=== PATIENT | female | born 1955 | race Caucasian/White ===

== ENCOUNTER → 2016-12-01 | Outpatient (CLI) | payer OTHER ==
[~2016-12-01] MED LIST: ALBUTEROL; FLUNPOW; LEVO10VL IV; MAGN250T2 PO; OMEP40CA2 PO; VITA200016 PO; ZOLP5TAB PO
[2016-12-01 15:26] LABS: FREE T4 1.22 NG/DL (0.76-1.46)
--- NOTE | 2016-12-01 20:16 | REP ---
LUMBAR SPINE, COMPLETE: 12/01/2016. Clinical history: Back pain. I have only a report of an x-ray study 12/13/2006 at [facility]. Images no longer available. Five views are provided. The normal lordosis is slightly reduced. The disc space heights and vertebral body heights are intact. There are marginal osteophytes, greatest at L3-4. There is facet arthritis at L4-5 and greater at L5-S1. No spondylolysis or spondylolisthesis noted. AP view shows slight dextrorotatory curve lumbar spine centered at L2-3. Right upper quadrant clips from cholecystectomy. Impression: 1. Degenerative disc and facet arthritic changes as described. No compression deformity, spondylolysis or other acute finding. Signed by Javon Fisher MD 12/01/2016 08:22 P
--- NOTE | 2016-12-01 20:18 | REP ---
RIGHT HIP SERIES, COMPLETE: 12/01/2016. Clinical history: Hip pain. Comparison 11/04/2008. Small rim osteophytes femoral head and acetabular roof. I do not see any progressive joint space narrowing since the study in 2007. Femoral head, neck, trochanters and proximal shaft intact. That portion of pubic rami, acetabulum, iliac bone and the SI joint are unremarkable. Impression: 1. Some right hip osteoarthritic change without progression since 2007. Signed by Javon Fisher MD 12/01/2016 08:22 P
== END ==
LOC: M LAB 13:54
PROVIDERS: ATTEND Physician Assistant Medical
DX: M16.11 Unilateral primary osteoarthritis, right hip (principal); M51.36 Other intervertebral disc degeneration, lumbar region; E03.9 Hypothyroidism, unspecified; M25.551 Pain in right hip; M54.5 Low back pain

== ENCOUNTER → 2016-12-01 | Outpatient (CLI) | payer OTHER ==
[2016-12-01 14:48] LABS: MEAN CORPUSCULAR HEMOGLOBIN 31.2 pg (27.0-33.0); MEAN CORPUSCULAR HGB CONC 33.6 g/dl (32.0-36.5); RED CELL DISTRIBUTION WIDTH 11.9 % (11.5-14.5); WHITE BLOOD COUNT 3.8 K/mm3 (4.0-10.0)
[2016-12-01 14:59] LABS: BASOPHILS 3 % (0-4); EOSINOPHILS 3 % (0-5)
[2016-12-01 15:19] LABS: ALBUMIN 3.7 GM/DL (3.2-5.2); ALKALINE PHOSPHATASE 69 U/L (45-117); ALT/SGPT 29 U/L (12-78); ANION GAP 7 MEQ/L (8-16); AST/SGOT 17 U/L (15-37); BILIRUBIN,TOTAL 0.3 MG/DL (0.2-1.0); BLOOD UREA NITROGEN 15 MG/DL (7-18); CALCIUM LEVEL 8.9 MG/DL (8.8-10.2); CARBON DIOXIDE LEVEL 30 MEQ/L (21-32); CHLORIDE LEVEL 106 MEQ/L (98-107); COMPLEMENT C3 147 MG/DL (90-180); COMPLEMENT C4 12.8 MG/DL (10-40); CREATININE FOR GFR 0.83 MG/DL (0.55-1.02); GLOMERULAR FILTRATION RATE > 60.0 (>45); GLUCOSE, FASTING 94 MG/DL (80-110); POTASSIUM SERUM 4.4 MEQ/L (3.5-5.1); SODIUM LEVEL 143 MEQ/L (136-145); TOTAL PROTEIN 7.8 GM/DL (6.4-8.2)
== END ==
LOC: M LAB 14:02
PROVIDERS: ATTEND Physician Assistant Medical
DX: M32.10 Systemic lupus erythematosus, organ or system involvement unspecified (principal)

== ENCOUNTER → 2017-05-01 | Outpatient (CLI) | payer OTHER ==
[2017-05-01 17:42] LABS: ALBUMIN 3.8 GM/DL (3.2-5.2); ALBUMIN/GLOBULIN RATIO 0.95 (1.00-1.93); ALKALINE PHOSPHATASE 77 U/L (45-117); ALT/SGPT 23 U/L (12-78); ANION GAP 6 MEQ/L (8-16); AST/SGOT 21 U/L (15-37); BILIRUBIN,TOTAL 0.3 MG/DL (0.2-1.0); BLOOD UREA NITROGEN 13 MG/DL (7-18); CALCIUM LEVEL 8.6 MG/DL (8.8-10.2); CARBON DIOXIDE LEVEL 28 MEQ/L (21-32); CHLORIDE LEVEL 106 MEQ/L (98-107); CHOLESTEROL LEVEL 221 MG/DL (<200); CREATININE FOR GFR 0.71 MG/DL (0.55-1.02); GLOMERULAR FILTRATION RATE > 60.0 (>45); GLUCOSE, FASTING 84 MG/DL (80-110); POTASSIUM SERUM 4.2 MEQ/L (3.5-5.1); SODIUM LEVEL 140 MEQ/L (136-145); TOTAL PROTEIN 7.8 GM/DL (6.4-8.2); TRIGLYCERIDES LEVEL 111 MG/DL (<150)
== END ==
LOC: M LAB 16:19
PROVIDERS: ATTEND Physician Assistant Medical
DX: E03.9 Hypothyroidism, unspecified (principal); E78.5 Hyperlipidemia, unspecified

== ENCOUNTER → 2017-12-04 | Outpatient (CLI) | payer BC, OTHER ==
[2017-12-04 16:42] LABS: BASO # 0.1 10^3/uL (0.0-0.2); BASO % 1.2 % (0.0-1.0); EOS # 0.1 10^3/uL (0.0-0.50); EOS % 1.9 % (0.0-3.0); HEMATOCRIT 40.7 % (36.0-47.0); HEMOGLOBIN 13.5 g/dl (12.0-16.0); IMMATURE GRANULOCYTE % 0.2 % (0-0); LYMPH # 0.7 10^3/uL (1.5-4.5); LYMPH % 13.8 % (24.0-44.0); MEAN CORPUSCULAR HEMOGLOBIN 31.4 pg (27.0-33.0); MEAN CORPUSCULAR HGB CONC 33.2 g/dl (32.0-36.5); MEAN CORPUSCULAR VOLUME 94.7 fl (80.0-96.0); MONO # 0.3 10^3/uL (0.0-0.8); NEUTROPHILS % 76.9 % (36.0-66.0); PLATELET COUNT, AUTOMATED 247 10^3/uL (150-450); RED CELL DISTRIBUTION WIDTH 12.7 % (11.5-14.5); WHITE BLOOD COUNT 5.1 10^3/uL (4.0-10.0)
[2017-12-04 17:06] LABS: ERYTHROCYTE SEDIMENTATION RATE 47 mm/hr (0-30)
[2017-12-04 17:30] LABS: FOLATE 4.6 NG/ML
[2017-12-04 18:27] LABS: VITAMIN B12 LEVEL 285 PG/ML
[2017-12-04 18:32] LABS: ALBUMIN 3.9 GM/DL (3.2-5.2); ALBUMIN/GLOBULIN RATIO 0.91 (1.00-1.93); ALKALINE PHOSPHATASE 83 U/L (45-117); ALT/SGPT 18 U/L (12-78); ANION GAP 7 MEQ/L (8-16); AST/SGOT 16 U/L (7-37); BILIRUBIN,TOTAL 0.3 MG/DL (0.2-1.0); BLOOD UREA NITROGEN 18 MG/DL (7-18); CALCIUM LEVEL 9.1 MG/DL (8.8-10.2); CARBON DIOXIDE LEVEL 28 MEQ/L (21-32); CHLORIDE LEVEL 104 MEQ/L (98-107); CREATININE FOR GFR 0.83 MG/DL (0.55-1.02); GLOMERULAR FILTRATION RATE > 60.0 (>45); GLUCOSE, FASTING 84 MG/DL (70-100); POTASSIUM SERUM 4.4 MEQ/L (3.5-5.1); RHEUMATOID FACTOR QUANT < 10.0 IU/ML (0-15.0); SODIUM LEVEL 139 MEQ/L (136-145); TOTAL PROTEIN 8.2 GM/DL (6.4-8.2)
[2017-12-04 18:50] LABS: ESTIMATED AVERAGE GLUCOSE 108 MG/DL (60-110); HEMOGLOBIN A1c 5.4 %
[2017-12-04 21:38] LABS: TOTAL 25(OH) VITAMIN D 8.4 NG/ML (30.0-100.0)
[2017-12-05 11:15] LABS: ALBUMIN % 51.5 % (55.8-66.1); ALPHA-1-GLOBULIN % 3.7 % (2.9-4.9)
[2017-12-05 11:16] LABS: ALBUMIN 4.22 GM/DL (3.29-5.55); ALPHA-2-GLOBULINS 0.87 GM/DL (0.42-0.99); ALPHA-2-GLOBULINS % 10.6 % (7.1-11.8); BETA-1-GLOBULINS 0.56 GM/DL (0.28-0.60); BETA-1-GLOBULINS % 6.8 % (4.7-7.2); BETA-2-GLOBULINS 0.58 GM/DL (0.19-0.55); BETA-2-GLOBULINS % 7.1 % (3.2-6.5); GAMMA GLOBULIN % 20.3 % (11.1-18.8); GAMMA GLOBULINS 1.66 GM/DL (0.65-1.58)
[2017-12-06 11:04] LABS: DRVV SCREEN 41.5 SEC
[2017-12-11 14:12] LABS: ANCA-ATYPICAL <1:20 titer (Neg:<1:20); ANTI DOUBLE STRAND-DNA AB 1 IU/mL (0-9); ANTINUCLEAR ANTIBODIES DIRECT Positive (Negative); CYTOPLASMIC NEUTROP AB ANCA-C <1:20 titer (Neg:<1:20); PERINUCLEAR AB ANCA-P <1:20 titer (Neg:<1:20); RNP ANTIBODIES 0.2 AI (0.0-0.9); SJOGREN'S ANTI SS-A >8.0 AI (0.0-0.9); SJOGREN'S ANTI SS-B 2.6 AI (0.0-0.9); SMITH ANTIBODIES 0.2 AI (0.0-0.9); VITAMIN B1 LEVEL WHOLE BLOOD 139.4 nmol/L (66.5-200.0); VITAMIN B6,PYRIDOXAL PHOSPHATE 8.7 ug/L (2.0-32.8); VITAMIN E LEVEL 19.2 mg/L (6.5-21.5)
== END ==
LOC: M LAB 14:27
DX: M79.606 Pain in leg, unspecified (principal)

== ENCOUNTER → 2018-02-05 | Outpatient (CLI) | payer BC, OTHER | LOC: M WUC 11:58 | DX: S30.0XXA Contusion of lower back and pelvis, initial encounter (principal); W18.30XA Fall on same level, unspecified, initial encounter; Y92.009 Unspecified place in unspecified non-institutional (private) residence as the place of occurrence of the external cause | CPT/HCPCS: 72110 ==

== ENCOUNTER → 2018-06-04 | Outpatient (CLI) | payer BC, OTHER ==
[2018-06-04 18:34] LABS: TOTAL 25(OH) VITAMIN D 38.2 NG/ML (30.0-100.0)
== END ==
LOC: M WUC 15:19
DX: E55.9 Vitamin D deficiency, unspecified (principal)
CPT/HCPCS: 82306

== ENCOUNTER → 2018-08-17 | Outpatient (CLI) | payer BC, OTHER ==
[2018-08-17 16:22] LABS: BASO # 0.1 10^3/uL (0.0-0.2); BASO % 1.3 % (0.0-1.0); EOS # 0.1 10^3/uL (0.0-0.50); EOS % 1.7 % (0.0-3.0); HEMATOCRIT 42.6 % (36.0-47.0); HEMOGLOBIN 13.9 g/dl (12.0-15.5); IMMATURE GRANULOCYTE % 0.4 % (0-3.0); LYMPH % 19.2 % (24.0-44.0); MEAN CORPUSCULAR HEMOGLOBIN 30.9 pg (27.0-33.0); MEAN CORPUSCULAR HGB CONC 32.6 g/dl (32.0-36.5); MEAN CORPUSCULAR VOLUME 94.7 fl (80.0-96.0); MONO # 0.4 10^3/uL (0.0-0.8); MONO % 7.3 % (0.0-5.0); NEUTROPHILS # 3.6 10^3/uL (1.8-7.7); NEUTROPHILS % 70.1 % (36.0-66.0); PLATELET COUNT, AUTOMATED 257 10^3/uL (150-450); WHITE BLOOD COUNT 5.2 10^3/uL (4.0-10.0)
[2018-08-17 16:29] LABS: APPEARANCE, URINE CLEAR (CLEAR); BACTERIA, URINE AUTO NEGATIVE (NEGATIVE); BILIRUBIN, URINE AUTO NEGATIVE (NEGATIVE); BLOOD, URINE BLOOD NEGATIVE (NEGATIVE); COLOR, URINE STRAW (YELLOW); GLUCOSE, URINE (UA) AUTO NEGATIVE (NEGATIVE); KETONE, URINE AUTO NEGATIVE (NEGATIVE); LEUKOCYTE ESTERASE, URINE AUTO TRACE (NEGATIVE); NITRITE, URINE AUTO NEGATIVE (NEGATIVE); PROTEIN, URINE AUTO NEGATIVE (NEGATIVE); RBC, URINE AUTO 2 /HPF (0-3); SPECIFIC GRAVITY URINE AUTO 1.009 (1.002-1.035); SQUAMOUS EPITHELIAL CELL UR AU 1 /HPF (0-6); UROBILINOGEN, URINE AUTO 0.2 mg/dL (0.0-2.0); WBC, URINE AUTO 2 /HPF (0-3)
[2018-08-17 17:19] LABS: ALBUMIN 3.9 GM/DL (3.2-5.2); ALBUMIN/GLOBULIN RATIO 0.91 (1.00-1.93); ALKALINE PHOSPHATASE 70 U/L (45-117); ALT/SGPT 19 U/L (12-78); ANION GAP 5 MEQ/L (8-16); AST/SGOT 19 U/L (7-37); BILIRUBIN,TOTAL 0.3 MG/DL (0.2-1.0); BLOOD UREA NITROGEN 15 MG/DL (7-18); C REACTIVE PROTEIN QUANTITATIV < 0.30 MG/DL (0.00-0.30); CALCIUM LEVEL 9.3 MG/DL (8.8-10.2); CARBON DIOXIDE LEVEL 30 MEQ/L (21-32); CHLORIDE LEVEL 104 MEQ/L (98-107); COMPLEMENT C3 154 MG/DL (90-180); CPK CREATINE PHOSPHOKINASE 74 U/L (26-192); CREATININE FOR GFR 0.86 MG/DL (0.55-1.30); GLOMERULAR FILTRATION RATE > 60.0 (>45); GLUCOSE, FASTING 84 MG/DL (70-100); SODIUM LEVEL 139 MEQ/L (136-145); TOTAL PROTEIN 8.2 GM/DL (6.4-8.2)
[2018-08-21 00:06] LABS: ANTI DOUBLE STRAND-DNA AB 2 IU/mL (0-9)
[2018-08-21 14:04] LABS: ALBUMIN 4.25 GM/DL (3.29-5.55); ALBUMIN % 51.8 % (55.8-66.1); ALPHA-1-GLOBULIN % 3.4 % (2.9-4.9); ALPHA-1-GLOBULINS 0.28 GM/DL (0.17-0.41); ALPHA-2-GLOBULINS 0.87 GM/DL (0.42-0.99); ALPHA-2-GLOBULINS % 10.6 % (7.1-11.8); BETA-1-GLOBULINS 0.53 GM/DL (0.28-0.60); BETA-1-GLOBULINS % 6.5 % (4.7-7.2); BETA-2-GLOBULINS 0.56 GM/DL (0.19-0.55); BETA-2-GLOBULINS % 6.8 % (3.2-6.5); GAMMA GLOBULIN % 20.9 % (11.1-18.8); GAMMA GLOBULINS 1.71 GM/DL (0.65-1.58)
== END ==
LOC: M LAB 15:31
DX: M35.00 Sjogren syndrome, unspecified (principal)
CPT/HCPCS: 82550

== ENCOUNTER → 2019-02-12 | Outpatient (CLI) | payer BC, OTHER ==
[~2019-02-12] MED LIST changes: +LEVO100I IV; -LEVO10VL IV; -MAGN250T2 PO; +MAGN250T7 PO
[2019-02-12 16:14] LABS: BASO # 0.1 10^3/uL (0.0-0.2); BASO % 1.1 % (0.0-1.0); EOS # 0.1 10^3/uL (0.0-0.50); HEMATOCRIT 41.6 % (36.0-47.0); HEMOGLOBIN 13.6 g/dl (12.0-15.5); LYMPH # 0.7 10^3/uL (1.5-4.5); LYMPH % 16.3 % (24.0-44.0); MEAN CORPUSCULAR HEMOGLOBIN 31.6 pg (27.0-33.0); MEAN CORPUSCULAR HGB CONC 32.7 g/dl (32.0-36.5); MEAN CORPUSCULAR VOLUME 96.5 fl (80.0-96.0); MONO # 0.4 10^3/uL (0.0-0.8); NEUTROPHILS # 3.3 10^3/uL (1.8-7.7); NEUTROPHILS % 71.4 % (36.0-66.0); PLATELET COUNT, AUTOMATED 259 10^3/uL (150-450); RED BLOOD COUNT 4.31 10^6/uL (4.00-5.40); WHITE BLOOD COUNT 4.6 10^3/uL (4.0-10.0)
[2019-02-12 16:42] LABS: ALBUMIN 3.7 GM/DL (3.2-5.2); ALT/SGPT 22 U/L (12-78); BILIRUBIN,TOTAL 0.3 MG/DL (0.2-1.0); BLOOD UREA NITROGEN 14 MG/DL (7-18); CARBON DIOXIDE LEVEL 29 MEQ/L (21-32); CHLORIDE LEVEL 105 MEQ/L (98-107); COMPLEMENT C3 143 MG/DL (90-180); COMPLEMENT C4 15 MG/DL (10-40); CREATININE FOR GFR 0.77 MG/DL (0.55-1.30); GLOMERULAR FILTRATION RATE > 60.0 (>45); GLUCOSE, FASTING 88 MG/DL (70-100); POTASSIUM SERUM 4.3 MEQ/L (3.5-5.1); SODIUM LEVEL 138 MEQ/L (136-145); TOTAL PROTEIN 7.8 GM/DL (6.4-8.2)
[2019-02-14 13:18] LABS: ALBUMIN % 50.6 % (55.8-66.1)
[2019-02-14 13:19] LABS: ALBUMIN 3.95 GM/DL (3.29-5.55); ALPHA-1-GLOBULIN % 3.7 % (2.9-4.9); ALPHA-1-GLOBULINS 0.29 GM/DL (0.17-0.41); ALPHA-2-GLOBULINS % 11.5 % (7.1-11.8); BETA-1-GLOBULINS 0.51 GM/DL (0.28-0.60); BETA-1-GLOBULINS % 6.5 % (4.7-7.2); BETA-2-GLOBULINS 0.56 GM/DL (0.19-0.55); BETA-2-GLOBULINS % 7.2 % (3.2-6.5); GAMMA GLOBULIN % 20.5 % (11.1-18.8)
[2019-02-14 13:34] LABS: IT SERUM INTERPRETATION SEE COMME
[2019-02-14 14:14] LABS: ANTI DOUBLE STRAND-DNA AB 2 IU/mL (0-9)
== END ==
LOC: M LAB 15:35
PROVIDERS: ATTEND Physician Assistant Medical
DX: M32.10 Systemic lupus erythematosus, organ or system involvement unspecified (principal)

== ENCOUNTER → 2019-03-22 | Outpatient (CLI) | payer BC, OTHER ==
--- NOTE | 2019-03-22 19:39 | REP ---
Right hip: Two views. History: Hip pain. Comparison study: December 01, 2016. Findings: AP and frog-leg views of the right hip show smooth rounded femoral head and intact hip joint space. Minimal acetabular spurring is noted. Findings are unchanged. Impression: Mild osteoarthritic changes. No acute bony abnormality. Electronically Signed by Judd Reyes MD 03/22/2019 08:31 P
== END ==
LOC: M WUC 16:14
PROVIDERS: ATTEND Physician Assistant Medical
DX: M16.11 Unilateral primary osteoarthritis, right hip (principal)

== ENCOUNTER → 2019-06-12 | Outpatient (CLI) | payer BC, OTHER ==
[2019-06-12 16:22] LABS: BASO # 0.1 10^3/uL (0.0-0.2); BASO % 1.6 % (0.0-1.0); EOS # 0.1 10^3/uL (0.0-0.50); EOS % 1.8 % (0.0-3.0); HEMATOCRIT 42.7 % (36.0-47.0); HEMOGLOBIN 13.8 g/dl (12.0-15.5); LYMPH # 0.8 10^3/uL (1.5-4.5); LYMPH % 18.5 % (24.0-44.0); MEAN CORPUSCULAR HEMOGLOBIN 31.5 pg (27.0-33.0); MEAN CORPUSCULAR HGB CONC 32.3 g/dl (32.0-36.5); MEAN CORPUSCULAR VOLUME 97.5 fl (80.0-96.0); MONO # 0.4 10^3/uL (0.0-0.8); MONO % 8.8 % (0.0-5.0); NEUTROPHILS # 3.1 10^3/uL (1.8-7.7); NEUTROPHILS % 69.3 % (36.0-66.0); PLATELET COUNT, AUTOMATED 247 10^3/uL (150-450); RED BLOOD COUNT 4.38 10^6/uL (4.00-5.40); WHITE BLOOD COUNT 4.4 10^3/uL (4.0-10.0)
[2019-06-12 16:57] LABS: IMMUNOGLOBULIN E 29.9 IU/ML (<100); IMMUNOGLOBULIN G 1490 MG/DL (681-1648); IMMUNOGLOBULIN M 78.5 MG/DL (40-230)
[2019-06-12 17:10] LABS: RUBELLA IgG QUALITATIVE IMMUNE (IMMUNE)
[2019-06-18 14:07] LABS: ANTI TETANUS ANTIBODY 0.35 IU/mL (<0.10); STREP PNEUMO TYPE 1 <0.1 ug/mL (>1.3); STREP PNEUMO TYPE 12F <0.1 ug/mL (>1.3); STREP PNEUMO TYPE 14 <0.1 ug/mL (>1.3); STREP PNEUMO TYPE 19A 0.9 ug/mL (>1.3); STREP PNEUMO TYPE 19F 0.9 ug/mL (>1.3); STREP PNEUMO TYPE 23F <0.1 ug/mL (>1.3); STREP PNEUMO TYPE 3 0.4 ug/mL (>1.3); STREP PNEUMO TYPE 4 <0.1 ug/mL (>1.3); STREP PNEUMO TYPE 6B <0.1 ug/mL (>1.3); STREP PNEUMO TYPE 7F 0.3 ug/mL (>1.3); STREP PNEUMO TYPE 8 <0.1 ug/mL (>1.3); STREP PNEUMO TYPE 9N <0.1 ug/mL (>1.3); STREP PNEUMO TYPE 9V <0.1 ug/mL (>1.3)
== END ==
LOC: M LAB 15:42
PROVIDERS: ATTEND Allergy & Immunology Allergy
DX: D84.9 Immunodeficiency, unspecified (principal); J30.81 Allergic rhinitis due to animal (cat) (dog) hair and dander; J30.89 Other allergic rhinitis

== ENCOUNTER → 2019-08-08 | Outpatient (CLI) | payer BC, OTHER ==
--- NOTE | 2019-08-08 15:33 | REP ---
Bilateral lower extremity arterial duplex ultrasound: Right lower extremity: Brachial peak systole: 152 mmHg. Dorsalis pedis peak systole: 156 mmHg. KETTLE OPERATOR peak systole: 164 mmHg. HALINA: 1.1 Peak Systolic Phasicity Velocity BELL PERSON 205.1 triphasic Profunda 140.9 triphasic SFA prox 113.7 triphasic SFA mid 134.6 triphasic SFA dist 98.9 triphasic Pop 67.8 triphasic LUIS prox 22.6 triphasic Tib/P tr 68.4 triphasic KETTLE OPERATOR pr 63.7 triphasic KETTLE OPERATOR dst 55.9 triphasic LUIS dst 56.9 triphasic Left lower extremity: Brachial peak systole: 146 mmHg. Dorsalis pedis peak systole: 158 mmHg. KETTLE OPERATOR peak systole: 154 mmHg. HALINA: 1.0 Peak Systolic Phasicity Velocity BELL PERSON 202.4 triphasic Profunda 79.2 triphasic SFA prox 82.6 triphasic Pop 74.2 triphasic LUIS prox 43.9 triphasic Tib/P tr 44.5 triphasic KETTLE OPERATOR pr 46.3 triphasic KETTLE OPERATOR dst 60.4 triphasic LUIS dst 46.2 biphasic Triphasic flow is seen throughout both lower extremities. No stenoses or occlusions are identified on the right on the left. Electronically Signed by Bimal Franco MD 08/08/2019 03:24 P
== END ==
LOC: M RAD 13:23
PROVIDERS: ATTEND Surgery Vascular Surgery
DX: M79.604 Pain in right leg (principal); M79.605 Pain in left leg; I87.2 Venous insufficiency (chronic) (peripheral)

== ENCOUNTER → 2019-08-15 | Outpatient (CLI) | payer BC, OTHER ==
--- NOTE | 2019-08-15 16:14 | REP ---
Bilateral lower extremity duplex venous ultrasound with reflux study. History: Bilateral leg pain. Venous insufficiency. Sonographic findings: The deep veins are anechoic and fully compressible from the groin to the popliteal fossa in both lower extremities on two-dimensional scanning. Color flow imaging is homogeneous. Spectral Doppler interrogation demonstrates intact respiratory variation in flow and normal manual augmentation of flow. There is no evidence of DVT. Reflux findings: Reflux is noted in the right greater saphenous vein. This measures 6.5 seconds in duration proximally at the saphenofemoral junction where the greater saphenous vein measures 4 mm in AP dimension. 8.2-second duration reflux was observed at mid thigh where the greater saphenous vein has in AP caliber of 3 mm. 7.2-second duration reflux was observed in the greater saphenous vein at the knee where it measures 3 mm in AP dimension. The lesser saphenous vein measures 2 mm. No deep system reflux is observed on the right. In the left lower extremity there is a large thigh collateral vein with reflux, 7.4 seconds in duration. 5.6 second duration reflux is observed in the common femoral vein. 5.1 second duration reflux is observed in the proximal greater saphenous vein where it measures 5 mm in AP dimension. No other reflux was observed. The greater saphenous vein measures 4 mm in AP dimension at the thigh and 3 mm in AP dimension at the knee. The lesser saphenous vein measures 2 mm. Impression: Bilateral reflux. No evidence of deep vein thrombosis. Electronically Signed by Judd Reyes MD 08/15/2019 04:34 P
== END ==
LOC: M RAD 12:35
PROVIDERS: ATTEND Surgery Vascular Surgery
DX: M79.604 Pain in right leg (principal); M79.605 Pain in left leg; I87.2 Venous insufficiency (chronic) (peripheral)

== ENCOUNTER → 2019-08-15 | Outpatient (CLI) | payer BC, OTHER ==
[2019-08-22 00:08] LABS: STREP PNEUMO TYPE 1 3.1 ug/mL (>1.3); STREP PNEUMO TYPE 12F <0.1 ug/mL (>1.3); STREP PNEUMO TYPE 14 2.6 ug/mL (>1.3); STREP PNEUMO TYPE 18C >10.9 ug/mL (>1.3); STREP PNEUMO TYPE 19A 6.4 ug/mL (>1.3); STREP PNEUMO TYPE 19F 1.5 ug/mL (>1.3); STREP PNEUMO TYPE 23F 0.2 ug/mL (>1.3); STREP PNEUMO TYPE 3 0.6 ug/mL (>1.3); STREP PNEUMO TYPE 4 0.1 ug/mL (>1.3); STREP PNEUMO TYPE 6B 0.3 ug/mL (>1.3); STREP PNEUMO TYPE 7F 1.1 ug/mL (>1.3); STREP PNEUMO TYPE 8 <0.1 ug/mL (>1.3); STREP PNEUMO TYPE 9N <0.1 ug/mL (>1.3); STREP PNEUMO TYPE 9V 0.3 ug/mL (>1.3)
== END ==
LOC: M LAB 14:28
PROVIDERS: ATTEND Nurse Practitioner Family
DX: D84.9 Immunodeficiency, unspecified (principal)

== ENCOUNTER → 2019-08-15 | Outpatient (CLI) | payer BC, OTHER ==
[2019-08-15 15:40] LABS: FREE T4 1.26 NG/DL (0.76-1.46); THYROID STIMULATING HORMONE 3.3 uIU/ML (0.358-3.740)
== END ==
LOC: M LAB 14:20
PROVIDERS: ATTEND Physician Assistant Medical
DX: E03.9 Hypothyroidism, unspecified (principal)

== ENCOUNTER → 2020-02-13 | Outpatient (CLI) | payer MEDICARE, BC, OTHER ==
[~2020-02-13] MED LIST changes: -OMEP40CA2 PO; +OMEP40CA97 PO
--- NOTE | 2020-02-13 14:46 | REP ---
MAXILLOFACIAL CT STUDY WITHOUT CONTRAST: HISTORY: Nasal congestion. Comparison study is from May 18, 2013. CT FINDINGS: Vascular calcification is noted in the distal vertebral and distal internal carotid arteries bilaterally. The maxilla is edentulous. The maxillary sinuses are clear bilaterally. Ethmoid and sphenoid aeration is normal. Frontal sinuses are clear. Mastoid aeration is normal and symmetric. Middle ear cavities appear to be aerated fully bilaterally. The deep facial and skull base soft tissues are unremarkable. No intraorbital abnormality is seen. Visualized intracranial structures show no acute abnormality. On coronal images, patent ostiomeatal complexes are present bilaterally. There are bilateral aerated fransisca bullosa and Harinder cells are visible bilaterally. Bony nasal septum shows slight leftward deviation anteriorly without a visible beak. No nasal polyp is appreciated. IMPRESSION: Vascular calcification. Paranasal sinuses are clear. Electronically Signed by Judd Reyes MD 02/13/2020 03:17 P
== END ==
LOC: M RAD 12:34
PROVIDERS: ATTEND Specialist
DX: R09.81 Nasal congestion (principal); J34.2 Deviated nasal septum

== ENCOUNTER → 2020-07-16 | Outpatient (CLI) | payer MEDICARE, BC, OTHER ==
[2020-07-16 15:55] LABS: ALBUMIN 3.9 GM/DL (3.2-5.2); ALT/SGPT 19 U/L (12-78); BILIRUBIN,TOTAL 0.5 MG/DL (0.2-1.0); BLOOD UREA NITROGEN 13 MG/DL (7-18); CALCIUM LEVEL 9.7 MG/DL (8.8-10.2); CARBON DIOXIDE LEVEL 30 MEQ/L (21-32); CHLORIDE LEVEL 103 MEQ/L (98-107); CHOLESTEROL LEVEL 262 MG/DL (<200); CHOLESTEROL RISK RATIO 5.574 (<5); CREATININE FOR GFR 0.84 MG/DL (0.55-1.30); FREE T4 1.04 NG/DL (0.76-1.46); GLOMERULAR FILTRATION RATE > 60.0 (>45); GLUCOSE, FASTING 97 MG/DL (70-100); HDL CHOLESTEROL 47 MG/DL (>40); LDL CHOLESTEROL 189 MG/DL (<100); NON-HDL-C 215 MG/DL; POTASSIUM SERUM 5.1 MEQ/L (3.5-5.1); SODIUM LEVEL 137 MEQ/L (136-145); TOTAL PROTEIN 8.4 GM/DL (6.4-8.2); TRIGLYCERIDES LEVEL 130 MG/DL (<150)
== END ==
LOC: M LAB 14:30
PROVIDERS: ATTEND Family Medicine
DX: E03.9 Hypothyroidism, unspecified (principal); E78.2 Mixed hyperlipidemia

== ENCOUNTER → 2021-02-26 | Outpatient (CLI) | payer MEDICARE, BC, OTHER ==
[2021-02-26 16:44] LABS: FREE T4 1.31 NG/DL (0.76-1.46); THYROID STIMULATING HORMONE 1.39 uIU/ML (0.358-3.740)
== END ==
LOC: M LAB 15:00
PROVIDERS: ATTEND Physician Assistant Medical
DX: E03.9 Hypothyroidism, unspecified (principal)

== ENCOUNTER → 2021-02-26 | Outpatient (CLI) | payer MEDICARE, BC, OTHER ==
[2021-02-26 15:50] LABS: APPEARANCE, URINE CLEAR (CLEAR); BACTERIA, URINE AUTO NEGATIVE (NEGATIVE); BILIRUBIN, URINE AUTO NEGATIVE (NEGATIVE); BLOOD, URINE BLOOD NEGATIVE (NEGATIVE); COLOR, URINE YELLOW (YELLOW); GLUCOSE, URINE (UA) AUTO NEGATIVE (NEGATIVE); KETONE, URINE AUTO NEGATIVE (NEGATIVE); LEUKOCYTE ESTERASE, URINE AUTO TRACE (NEGATIVE); NITRITE, URINE AUTO NEGATIVE (NEGATIVE); PROTEIN, URINE AUTO NEGATIVE (NEGATIVE); RBC, URINE AUTO 1 /HPF (0-3); SPECIFIC GRAVITY URINE AUTO 1.016 (1.002-1.035); SQUAMOUS EPITHELIAL CELL UR AU 1 /HPF (0-6); UROBILINOGEN, URINE AUTO 0.2 mg/dL (0.0-2.0); WBC, URINE AUTO 2 /HPF (0-3)
[2021-02-26 15:51] LABS: HEMATOCRIT 40.8 % (36.0-47.0); HEMOGLOBIN 13.2 g/dl (12.0-15.5); MEAN CORPUSCULAR HGB CONC 32.4 g/dl (32.0-36.5); MEAN CORPUSCULAR VOLUME 95.8 fl (80.0-96.0); PLATELET COUNT, AUTOMATED 267 10^3/uL (150-450); RED BLOOD COUNT 4.26 10^6/uL (4.00-5.40); WHITE BLOOD COUNT 6.1 10^3/uL (4.0-10.0)
[2021-02-26 16:24] LABS: ALBUMIN 3.5 GM/DL (3.2-5.2); ALT/SGPT 17 U/L (12-78); BILIRUBIN,TOTAL 0.3 MG/DL (0.2-1.0); BLOOD UREA NITROGEN 14 MG/DL (7-18); CALCIUM LEVEL 9.4 MG/DL (8.8-10.2); CARBON DIOXIDE LEVEL 34 MEQ/L (21-32); CHLORIDE LEVEL 105 MEQ/L (98-107); COMPLEMENT C3 149 MG/DL (90-180); COMPLEMENT C4 17 MG/DL (10-40); CREATININE FOR GFR 0.78 MG/DL (0.55-1.30); GLOMERULAR FILTRATION RATE > 60.0 (>45); GLUCOSE, FASTING 91 MG/DL (70-100); POTASSIUM SERUM 4.6 MEQ/L (3.5-5.1); SODIUM LEVEL 140 MEQ/L (136-145); TOTAL PROTEIN 7.4 GM/DL (6.4-8.2)
[2021-03-01 12:11] LABS: ANTI DS-DNA AB Negative (Negative)
== END ==
LOC: M LAB 15:05
PROVIDERS: ATTEND Physician Assistant Medical
DX: M32.9 Systemic lupus erythematosus, unspecified (principal); M35.00 Sjogren syndrome, unspecified; M79.7 Fibromyalgia; E03.9 Hypothyroidism, unspecified
CPT/HCPCS: 11900; 36415; 80053; 81001; 84439; 84443; 85027; 86160; 86225; J3301

== ENCOUNTER → 2021-07-08 | Outpatient (CLI) | payer MEDICARE, BC, OTHER ==
[~2021-07-08] MED LIST changes: +ASPI81CH33 PO; +CLIN1LOT TOP; +CLOB0.057 TOP; +CYCL-707 PO; +DOXY100C3 PO; +DOXY100T27 PO; +DULE100A INH; +ELID1CRE11 TOP; +FISH120016 PO; +HYDR200T3 PO; +KETO2SHA8 TOP; -LEVO100I IV; +LEVO100I PO; +METR0.7533 TOP; +MUPI2OI TOP; +OMEP40CA4 PO; -OMEP40CA97 PO; +OXCA150T21 PO; +SING10TA32 PO; +VENTAER INH
== END ==
LOC: M LABSMTC 11:06
PROVIDERS: ATTEND Anesthesiology
DX: Z01.812 Encounter for preprocedural laboratory examination (principal); Z20.822 Contact with and (suspected) exposure to COVID-19

== ENCOUNTER 2021-07-13 08:22 | Outpatient (CLI) | payer MEDICARE, BC, OTHER ==
[2021-07-13] MEDS ORDERED: LIDOCAINE 2% 100MG/5ML SDV (FOR ANES.) ONE (08:23)
[2021-07-13] MEDS ORDERED: propofoL 200 MG/20 ML VIAL ONE (08:23)
[2021-07-13 09:49] LABS: BLOOD UREA NITROGEN 11 MG/DL (7-18); CALCIUM LEVEL 9.4 MG/DL (8.8-10.2); CARBON DIOXIDE LEVEL 30 MEQ/L (21-32); CHLORIDE LEVEL 107 MEQ/L (98-107); CREATININE FOR GFR 0.85 MG/DL (0.55-1.30); GLOMERULAR FILTRATION RATE > 60.0 (>45); GLUCOSE, FASTING 95 MG/DL (70-100); POTASSIUM SERUM 4.5 MEQ/L (3.5-5.1); SODIUM LEVEL 141 MEQ/L (136-145)
--- NOTE | 2021-07-13 11:19 | REPVR ---
PROCEDURE INFORMATION: Exam: MR Head Without Contrast Exam date and time: 07/13/2021 8:50 AM Age: 65 years old Clinical indication: Syncope and collapse; Additional info: Dizziness and giddiness, syncope and collapse TECHNIQUE: Imaging protocol: MR of the head without contrast. COMPARISON: CT Maxilofacial w/out contrast 02/13/2020 12:59 PM FINDINGS: Brain: There is no acute intracranial hemorrhage, cerebral edema, or midline shift. No restricted diffusion is present to suggest acute infarction. Multiple small foci of increased T2 and FLAIR signal within the periventricular and subcortical white matter are present. This is nonspecific but could represent early chronic microangiopathic ischemic changes, the sequela of migraine headaches, demyelinating disease, prior trauma, vasculitis, or Lyme disease. Clinical correlation is recommended. Cerebral ventricles: There is no hydrocephalus. Several small foci of susceptibility artifact on the gradient echo weighted sequence are noted along the ependymal lining of the left lateral ventricle. This may represent hemosiderin deposition or small calcifications. Bones/joints: Unremarkable. Paranasal sinuses: Normal as visualized. No acute sinusitis. Mastoid air cells: Normal as visualized. No mastoid effusion. Orbital cavity: Unremarkable. Soft tissues: Unremarkable. IMPRESSION: 1. No acute intracranial abnormality. 2. Chronic findings as discussed above. Electronically signed by: Marcos Nicole On 07/13/2021 11:19:05 AM
--- NOTE | 2021-07-13 11:27 | REPVR ---
PROCEDURE INFORMATION: Exam: MRA Head Without Contrast; Arteriography Exam date and time: 07/13/2021 8:50 AM Age: 65 years old Clinical indication: Syncope and collapse; Additional info: Dizziness and giddiness, syncope and collapse TECHNIQUE: Imaging protocol: Magnetic resonance angiography head without contrast. Exam focused on the arteries. COMPARISON: MRI-Brain without Contrast 07/13/2021 10:07 AM FINDINGS: ANTERIOR CIRCULATION: Right internal carotid artery: There is a 3.5 mm medially directed wide necked aneurysm arising from posterior turn of right cavernous carotid artery. Right middle cerebral artery: No occlusion or significant stenosis. No aneurysm. Right anterior cerebral artery: No occlusion or significant stenosis. No aneurysm. Left internal carotid artery: Intracranial segment is patent with no significant stenosis. No aneurysm. Left middle cerebral artery: No occlusion or significant stenosis. No aneurysm. Left anterior cerebral artery: No occlusion or significant stenosis. No aneurysm. POSTERIOR CIRCULATION: Right vertebral artery: No occlusion or significant stenosis. No aneurysm. 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 Basilar artery: No occlusion or significant stenosis. No aneurysm. Right posterior cerebral artery: No occlusion or significant stenosis. No aneurysm. Left posterior cerebral artery: No occlusion or significant stenosis. No aneurysm. IMPRESSION: 1. No large vessel occlusion. 2. 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
--- NOTE | 2021-07-13 11:29 | REPVR ---
PROCEDURE INFORMATION: Exam: MRA Neck Without Contrast Exam date and time: 07/13/2021 8:50 AM Age: 65 years old Clinical indication: Syncope and collapse; Additional info: Dizziness and giddiness, syncope and collapse TECHNIQUE: Imaging protocol: Magnetic resonance angiography of the neck without contrast. COMPARISON: MRA BRAIN W/O CONTRAST 07/13/2021 10:32 AM FINDINGS: Right common carotid artery: No stenosis. No dissection or occlusion. Right internal carotid artery: No stenosis of the extracranial segment. No dissection or occlusion. Right external carotid artery: No stenosis. No dissection or occlusion of the origin. Right vertebral artery: The right vertebral artery is dominant and widely patent. Left common carotid artery: No stenosis. No dissection or occlusion. Left internal carotid artery: No stenosis of the extracranial segment. No dissection or occlusion. Left external carotid artery: No stenosis. No dissection or occlusion of the origin. 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 IMPRESSION: No acute abnormality. REFERENCES: NASCET CRITERIA. The degree of internal carotid artery stenosis is based on NASCET criteria. Normal is no stenosis. Mild is less than 50% stenosis. Moderate is 50-69% stenosis. Severe is 70% to 99% stenosis. Total occlusion is no detectable patent lumen. Electronically signed by: Marcos Nicole On 07/13/2021 11:28:52 AM
== END 2021-07-13 11:45 | disposition home or self-care (01) ==
LOC: M RAD 08:22
PROVIDERS: ATTEND Physician Assistant Medical
DX: R42 Dizziness and giddiness (principal); R55 Syncope and collapse; G50.1 Atypical facial pain; I72.0 Aneurysm of carotid artery

== ENCOUNTER → 2021-07-13 | Outpatient (CLI) | payer MEDICARE, BC, OTHER ==
--- NOTE | 2021-07-14 14:58 | ECGEPIP ---
[facility] Test Date: 2021-07-13 Pat Name: MARY BALDERAS Department: Room: - Gender: Female Decatizer: ANAYELI : 1955 Requested By: Cony Mendez Order Number: [id number] Reading MD: Fabiano Ivey Measurements Intervals [place] Rate: 78 P: 76 MN: 190 QRS: 64 QRSD: 78 T: 84 QT: 380 QTc: 433 Interpretive Statements Normal sinus rhythm Minor repolarization abnormality No significant change when compared to prior tracing of 10/09/2015 Electronically Signed on 07-14-2021 14:58:02 EDT by Fabiano Ivey
== END ==
LOC: M LAB 08:27
PROVIDERS: ATTEND Family Medicine
DX: R55 Syncope and collapse (principal); R42 Dizziness and giddiness; G50.1 Atypical facial pain; I72.0 Aneurysm of carotid artery

== ENCOUNTER → 2022-03-18 | Outpatient (CLI) | payer MEDICARE, BC, OTHER ==
[2022-03-18 17:24] LABS: HEMATOCRIT 42.5 % (36.0-47.0); HEMOGLOBIN 13.8 g/dl (12.0-15.5); MEAN CORPUSCULAR HEMOGLOBIN 30.7 pg (27.0-33.0); MEAN CORPUSCULAR HGB CONC 32.5 g/dl (32.0-36.5); MEAN CORPUSCULAR VOLUME 94.4 fl (80.0-96.0); PLATELET COUNT, AUTOMATED 278 10^3/uL (150-450); WHITE BLOOD COUNT 5.6 10^3/uL (4.0-10.0)
[2022-03-18 17:45] LABS: ALBUMIN 3.6 GM/DL (3.2-5.2); ALT/SGPT 17 U/L (12-78); BILIRUBIN,TOTAL 0.3 MG/DL (0.2-1.0); BLOOD UREA NITROGEN 11 MG/DL (7-18); CARBON DIOXIDE LEVEL 32 MEQ/L (21-32); CHLORIDE LEVEL 104 MEQ/L (98-107); COMPLEMENT C3 124 MG/DL (90-180); COMPLEMENT C4 17 MG/DL (10-40); CREATININE FOR GFR 0.81 MG/DL (0.55-1.30); GLOMERULAR FILTRATION RATE > 60.0 (>45); GLUCOSE, FASTING 92 MG/DL (70-100); POTASSIUM SERUM 4.9 MEQ/L (3.5-5.1); SODIUM LEVEL 139 MEQ/L (136-145); TOTAL PROTEIN 7.6 GM/DL (6.4-8.2)
== END ==
LOC: M LAB 15:17
PROVIDERS: ATTEND Physician Assistant Medical
DX: M35.00 Sjogren syndrome, unspecified (principal); M79.7 Fibromyalgia; M32.9 Systemic lupus erythematosus, unspecified

== ENCOUNTER → 2022-04-20 | Outpatient (CLI) | payer MEDICARE, BC, OTHER | LOC: M RAD 10:49 | PROVIDERS: ATTEND Neurological Surgery | DX: I67.1 Cerebral aneurysm, nonruptured (principal) ==

== ENCOUNTER → 2022-09-22 | Outpatient (CLI) | payer MEDICARE, BC, OTHER ==
[~2022-09-22] MED LIST changes: +METR0.7526 TOP; -METR0.7533 TOP
[2022-09-22 17:17] LABS: ALBUMIN 3.4 GM/DL (3.2-5.2); ALT/SGPT 20 U/L (12-78); BILIRUBIN,TOTAL 0.4 MG/DL (0.2-1.0); BLOOD UREA NITROGEN 11 MG/DL (7-18); CALCIUM LEVEL 9.2 MG/DL (8.8-10.2); CARBON DIOXIDE LEVEL 29 MEQ/L (21-32); CHLORIDE LEVEL 102 MEQ/L (98-107); CHOLESTEROL LEVEL 244 MG/DL (<200); CHOLESTEROL RISK RATIO 4.357 (<5); CREATININE FOR GFR 0.76 MG/DL (0.55-1.30); FREE T4 1.35 NG/DL (0.76-1.46); GLOMERULAR FILTRATION RATE > 60.0 (>45); GLUCOSE, FASTING 84 MG/DL (70-100); HDL CHOLESTEROL 56 MG/DL (>40); LDL CHOLESTEROL 169 MG/DL (<100); NON-HDL-C 188 MG/DL; POTASSIUM SERUM 4.4 MEQ/L (3.5-5.1); SODIUM LEVEL 136 MEQ/L (136-145); TOTAL PROTEIN 7.8 GM/DL (6.4-8.2); TRIGLYCERIDES LEVEL 97 MG/DL (<150)
== END ==
LOC: M LAB 14:54
PROVIDERS: ATTEND Nurse Practitioner Family
DX: E03.9 Hypothyroidism, unspecified (principal); E78.2 Mixed hyperlipidemia

== ENCOUNTER → 2022-09-22 | Outpatient (CLI) | payer MEDICARE, BC, OTHER ==
[2022-09-22 16:19] LABS: HEMATOCRIT 44.1 % (36.0-47.0); HEMOGLOBIN 13.8 g/dl (12.0-15.5); MEAN CORPUSCULAR HEMOGLOBIN 30.7 pg (27.0-33.0); MEAN CORPUSCULAR HGB CONC 31.3 g/dl (32.0-36.5); MEAN CORPUSCULAR VOLUME 98.2 fl (80.0-96.0); PLATELET COUNT, AUTOMATED 168 10^3/uL (150-450); RED BLOOD COUNT 4.49 10^6/uL (4.00-5.40); WHITE BLOOD COUNT 6.7 10^3/uL (4.0-10.0)
[2022-09-22 16:40] LABS: APPEARANCE, URINE MANUAL CLEAR (CLEAR); BILIRUBIN, URINE MANUAL NEGATIVE (NEGATIVE); BLOOD URINE MANUAL TRACE (NEGATIVE); COLOR, URINE MANUAL COLORLESS (YELLOW); GLUCOSE, URINE (UA) MANUAL NEGATIVE (NEGATIVE); KETONE, URINE MANUAL NEGATIVE (NEGATIVE); LEUKOCYTE ESTERASE, URINE MAN NEGATIVE (NEGATIVE); NITRITE, URINE MANUAL NEGATIVE (NEGATIVE); PROTEIN, URINE MANUAL NEGATIVE (NEGATIVE); UROBILINOGEN, URINE MANUAL NORMAL (NORMAL)
[2022-09-22 17:15] LABS: ALBUMIN 3.4 GM/DL (3.2-5.2); ALT/SGPT 20 U/L (12-78); BILIRUBIN,TOTAL 0.4 MG/DL (0.2-1.0); BLOOD UREA NITROGEN 11 MG/DL (7-18); CALCIUM LEVEL 9.2 MG/DL (8.8-10.2); CARBON DIOXIDE LEVEL 31 MEQ/L (21-32); CHLORIDE LEVEL 103 MEQ/L (98-107); COMPLEMENT C3 164 MG/DL (90-180); COMPLEMENT C4 21 MG/DL (10-40); CREATININE FOR GFR 0.75 MG/DL (0.55-1.30); GLOMERULAR FILTRATION RATE > 60.0 (>45); GLUCOSE, FASTING 91 MG/DL (70-100); SODIUM LEVEL 138 MEQ/L (136-145); TOTAL PROTEIN 7.8 GM/DL (6.4-8.2)
[2022-09-22 17:21] LABS: WBC, URINE 0-1 /hpf (0-3)
[2022-09-22 17:22] LABS: BACTERIA, URINE NONE SEEN; SQUAMOUS EPITHELIAL CELL URINE SMALL AMOUNT /hpf (SMALL AMT)
[2022-09-26 15:08] LABS: ANTI DS-DNA AB Positive (Negative)
== END ==
LOC: M LAB 14:58
PROVIDERS: ATTEND Internal Medicine Rheumatology
DX: M32.9 Systemic lupus erythematosus, unspecified (principal); M35.00 Sjogren syndrome, unspecified

== ENCOUNTER → 2023-03-21 | Outpatient (CLI) | payer MEDICARE, BC, OTHER ==
[~2023-03-21] VITALS: Ht 177.8 cm; Wt 114.6 kg
[~2023-03-21] MED LIST changes: -DULE100A INH; +MAGN100T PO; +MOME13HF8 INH; +MONT-5 PO; -SING10TA32 PO
[2023-03-21 15:15] VITALS: BP 138/84
== END ==
LOC: M PAL 15:06
PROVIDERS: ATTEND Nurse Practitioner Adult Health
DX: G50.0 Trigeminal neuralgia (principal); M79.7 Fibromyalgia; I73.00 Raynaud's syndrome without gangrene; I73.81 Erythromelalgia; G62.9 Polyneuropathy, unspecified; M54.81 Occipital neuralgia; M79.18 Myalgia, other site; M32.9 Systemic lupus erythematosus, unspecified; G89.29 Other chronic pain; Z51.5 Encounter for palliative care; Z63.79 Other stressful life events affecting family and household; Z79.82 Long term (current) use of aspirin; Z79.899 Other long term (current) drug therapy; Z88.5 Allergy status to narcotic agent; Z88.8 Allergy status to other drugs, medicaments and biological substances; Z91.040 Latex allergy status; Z90.49 Acquired absence of other specified parts of digestive tract; Z90.710 Acquired absence of both cervix and uterus

== ENCOUNTER 2023-04-24 18:42 | Emergency (ER) | payer MEDICARE, BC, OTHER ==
[~2023-04-24] VITALS: Ht 177.8 cm; Wt 112.8 kg
[2023-04-24] MEDS ORDERED: HYDR12.55 (18:55)
[2023-04-24] MEDS ORDERED: LEVO88TA3 (18:55)
[2023-04-25 08:21] VITALS: BP 128/60; TEMP 98.2; O2SAT 97
== END 2023-04-25 08:20 | disposition home or self-care (01) ==
LOC: M ED 18:42
DX: M20.011 Mallet finger of right finger(s) (principal); I95.9 Hypotension, unspecified; E78.00 Pure hypercholesterolemia, unspecified; J45.909 Unspecified asthma, uncomplicated; K21.9 Gastro-esophageal reflux disease without esophagitis; K57.90 Diverticulosis of intestine, part unspecified, without perforation or abscess without bleeding; E03.9 Hypothyroidism, unspecified; F41.9 Anxiety disorder, unspecified; F32.9 Major depressive disorder, single episode, unspecified; Z85.41 Personal history of malignant neoplasm of cervix uteri; Z79.82 Long term (current) use of aspirin; Z79.899 Other long term (current) drug therapy; Z88.5 Allergy status to narcotic agent; Z88.8 Allergy status to other drugs, medicaments and biological substances; Z91.040 Latex allergy status

== ENCOUNTER → 2023-05-15 | Outpatient (REF) | payer MEDICARE, BC, OTHER ==
[~2023-05-15] MED LIST changes: +HYDR12.55; -HYDR200T3 PO; +HYDR200T46 PO; +LEVO88TA3
== END ==
LOC: M SFHCDERM 17:49
PROVIDERS: ATTEND Physician Assistant
DX: L82.1 Other seborrheic keratosis (principal)

== ENCOUNTER 2023-07-12 08:37 | Day surgery (SDC) | payer MEDICARE, BC, OTHER ==
[~2023-07-12] VITALS: Ht 177.8 cm; Wt 111.5 kg
[~2023-07-12 08:37] MED LIST changes: +BUDE10.7 IH; -HYDR12.55; +HYDR12.55 PO; -LEVO88TA3; +LEVO88TA3 PO; +LIDOCAINE W/EPINEPHRINE 1% 20ML VIAL XX ONE; +SODIUM BICARBONATE 8.4% INJ 50MEQ 50ML VIAL XX ONE
[2023-07-12] MEDS ORDERED: LIDOCAINE 1% MDV 20ML VIAL XX ONE (10:00)
[2023-07-12 11:30] VITALS: BP 127/67; TEMP 96.8; O2SAT 96
== END 2023-07-12 11:42 | disposition home or self-care (01) ==
LOC: M SDC 08:37
PROVIDERS: ATTEND Orthopaedic Surgery Hand Surgery
DX: S63.292A Dislocation of distal interphalangeal joint of right middle finger, initial encounter (principal); X58.XXXA Exposure to other specified factors, initial encounter; Y92.89 Other specified places as the place of occurrence of the external cause; E03.9 Hypothyroidism, unspecified; G62.9 Polyneuropathy, unspecified; Z88.5 Allergy status to narcotic agent; Z88.8 Allergy status to other drugs, medicaments and biological substances; Z91.040 Latex allergy status; Z79.82 Long term (current) use of aspirin; Z79.51 Long term (current) use of inhaled steroids; Z79.899 Other long term (current) drug therapy; J45.909 Unspecified asthma, uncomplicated; Z92.3 Personal history of irradiation; Z92.21 Personal history of antineoplastic chemotherapy; K21.9 Gastro-esophageal reflux disease without esophagitis; M32.9 Systemic lupus erythematosus, unspecified; F41.9 Anxiety disorder, unspecified; F32.A Depression, unspecified
CPT/HCPCS: 26756; 76000; C1713

== ENCOUNTER → 2023-07-21 | Outpatient (CLI) | payer MEDICARE, BC, OTHER ==
[~2023-07-21] MED LIST changes: -LIDOCAINE W/EPINEPHRINE 1% 20ML VIAL XX ONE; -SODIUM BICARBONATE 8.4% INJ 50MEQ 50ML VIAL XX ONE
== END ==
LOC: M SOG 08:01
PROVIDERS: ATTEND Physician Assistant
DX: M20.011 Mallet finger of right finger(s) (principal)

== ENCOUNTER → 2023-08-03 | Outpatient (CLI) | payer MEDICARE, BC, OTHER | LOC: M SOG 09:18 | PROVIDERS: ATTEND Physician Assistant | DX: M20.011 Mallet finger of right finger(s) (principal); M79.89 Other specified soft tissue disorders ==

== ENCOUNTER → 2023-09-07 | Outpatient (CLI) | payer MEDICARE, BC, OTHER | LOC: M SOG 08:20 | PROVIDERS: ATTEND Physician Assistant | DX: M20.011 Mallet finger of right finger(s) (principal) ==

== ENCOUNTER → 2023-10-23 | Outpatient (CLI) | payer MEDICARE, BC, OTHER ==
[2023-10-23 17:09] LABS: HEMATOCRIT 45.2 % (36.0-47.0); HEMOGLOBIN 15.1 g/dl (12.0-15.5); MEAN CORPUSCULAR HEMOGLOBIN 31.9 pg (27.0-33.0); MEAN CORPUSCULAR HGB CONC 33.4 g/dl (32.0-36.5); MEAN CORPUSCULAR VOLUME 95.6 fl (80.0-96.0); PLATELET COUNT, AUTOMATED 208 10^3/uL (150-450); RED BLOOD COUNT 4.73 10^6/uL (4.00-5.40)
[2023-10-23 17:10] LABS: APPEARANCE, URINE CLEAR (CLEAR); BILIRUBIN, URINE AUTO NEGATIVE (NEGATIVE); COLOR, URINE STRAW (YELLOW); GLUCOSE, URINE (UA) AUTO NEGATIVE (NEGATIVE); KETONE, URINE AUTO NEGATIVE (NEGATIVE); PROTEIN, URINE AUTO NEGATIVE (NEGATIVE); SPECIFIC GRAVITY URINE AUTO 1.006 (1.002-1.035); UROBILINOGEN, URINE AUTO 0.2 mg/dL (0.0-2.0)
[2023-10-23 17:11] LABS: BACTERIA, URINE AUTO NEGATIVE (NEGATIVE); BLOOD, URINE BLOOD 1+ (NEGATIVE); LEUKOCYTE ESTERASE, URINE AUTO NEGATIVE (NEGATIVE); NITRITE, URINE AUTO NEGATIVE (NEGATIVE); RBC, URINE AUTO 2 /HPF (0-3); SQUAMOUS EPITHELIAL CELL UR AU 0 /HPF (0-6); WBC, URINE AUTO 0 /HPF (0-3)
[2023-10-23 17:40] LABS: C REACTIVE PROTEIN QUANTITATIV < 0.40 MG/DL (<1.0)
[2023-10-23 17:45] LABS: ALKALINE PHOSPHATASE 58 U/L (46-116); ALT/SGPT 22 U/L (7.0-40); AST/SGOT 43 U/L (<34); BILIRUBIN,TOTAL 0.4 MG/DL (0.3-1.2); BLOOD UREA NITROGEN 9 MG/DL (9-23); CALCIUM LEVEL 9.6 MG/DL (8.3-10.6); CARBON DIOXIDE LEVEL 20 MMOL/L (20-31); CHLORIDE LEVEL 104 MMOL/L (98-107); CREATININE FOR GFR 0.69 MG/DL (0.55-1.30); GLOMERULAR FILTRATION RATE > 60.0 (>45); GLUCOSE, FASTING 83 MG/DL (74-106); POTASSIUM SERUM 5.6 MMOL/L (3.5-5.1); SODIUM LEVEL 138 MMOL/L (136-145); TOTAL PROTEIN 7.8 G/DL (5.7-8.2)
[2023-10-23 17:58] LABS: COMPLEMENT C3 156.2 MG/DL (90.0-170.0); COMPLEMENT C4 18.6 MG/DL (12-36)
[2023-10-26 18:07] LABS: ANTI DS-DNA AB Negative (Negative); IMMUNOTYPING SERUM IGA SO 454 mg/dL (87-352); IMMUNOTYPING SERUM IGM SO 85 mg/dL (26-217)
== END ==
LOC: M LAB 15:34
PROVIDERS: ATTEND Physician Assistant Medical
DX: M35.00 Sjogren syndrome, unspecified (principal); M32.9 Systemic lupus erythematosus, unspecified; E78.2 Mixed hyperlipidemia; E03.9 Hypothyroidism, unspecified; Z79.899 Other long term (current) drug therapy

== ENCOUNTER → 2023-10-23 | Outpatient (CLI) | payer MEDICARE, BC, OTHER ==
[2023-10-23 17:29] LABS: ALBUMIN 4.1 G/DL (3.2-5.2); ALKALINE PHOSPHATASE 71 U/L (46-116); ALT/SGPT 20 U/L (7.0-40); AST/SGOT 21 U/L (<34); BILIRUBIN,TOTAL 0.4 MG/DL (0.3-1.2); BLOOD UREA NITROGEN 9 MG/DL (9-23); CALCIUM LEVEL 9.8 MG/DL (8.3-10.6); CARBON DIOXIDE LEVEL 29 MMOL/L (20-31); CHLORIDE LEVEL 105 MMOL/L (98-107); CHOLESTEROL LEVEL 283 MG/DL (<200); CHOLESTEROL RISK RATIO 5.09 (<5); GLOMERULAR FILTRATION RATE > 60.0 (>45); GLUCOSE, FASTING 81 MG/DL (74-106); HDL CHOLESTEROL 55.5 MG/DL (>40); LDL CHOLESTEROL 204.1 MG/DL (<100); NON-HDL-C 227.5 MG/DL; POTASSIUM SERUM 4.6 MMOL/L (3.5-5.1); SODIUM LEVEL 141 MMOL/L (136-145); TOTAL PROTEIN 8.2 G/DL (5.7-8.2); TRIGLYCERIDES LEVEL 117 MG/DL (<150)
[2023-10-23 17:30] LABS: THYROID STIMULATING HORMONE 1.234 uIU/ML (0.55-4.78)
[2023-10-23 17:31] LABS: FREE T4 1.47 NG/DL (0.89-1.76)
== END ==
LOC: M LAB 15:28
PROVIDERS: ATTEND Nurse Practitioner Family
DX: E78.2 Mixed hyperlipidemia (principal); E03.9 Hypothyroidism, unspecified

== ENCOUNTER 2023-11-30 09:43 | Day surgery (SDC) | payer MEDICARE, BC, OTHER ==
[~2023-11-30] VITALS: Ht 177.8 cm; Wt 108.9 kg
[~2023-11-30 09:43] MED LIST changes: +BSS IRRIG/VANCO(10MG)/TOBRA(5MG)/EPINEPH(1:1000-0.5CC)500ML BAG-ORONLY IR ONE; +CEFUROXIME 1MG/0.1ML INTRACAMERAL INJ As Ordered ONE; +COLA100C5 PO; +CYCLOPENTOLATE 1% OPHTH SOLN 2ML BTL OD SCH; +LIDOCAINE 1% SDV 5ML VIAL As Ordered ONE; +LIDOCAINE 3.5 % 1ML OPHTH TOPICAL GEL OU ONE; +MIDAZOLAM INJ 2MG/2ML VIAL As Ordered ONE; +OFLOXACIN 0.3 % (OCUFLOX) OPTH SOL 5ML OD ONE; +PHENYLEPHRINE 10% OPHTH SOL 5ML OD PRN; +PHENYLEPHRINE 2.5% OPHTH SOL 2ML OD SCH; +TROPICAMIDE 1% OPHTH SOLN 15ML OD SCH; +fentaNYL 100 MCG/2 ML INJECTION As Ordered ONE
[2023-11-30 11:38] VITALS: BP 139/78; TEMP 97.7; O2SAT 99
== END 2023-11-30 12:02 | disposition home or self-care (01) ==
LOC: M SDC 09:43
PROVIDERS: ATTEND Ophthalmology
DX: H25.11 Age-related nuclear cataract, right eye (principal); E03.9 Hypothyroidism, unspecified; E78.00 Pure hypercholesterolemia, unspecified; M35.00 Sjogren syndrome, unspecified; M32.9 Systemic lupus erythematosus, unspecified; Z85.41 Personal history of malignant neoplasm of cervix uteri; Z90.710 Acquired absence of both cervix and uterus; Z90.49 Acquired absence of other specified parts of digestive tract; Z79.899 Other long term (current) drug therapy; Z79.890 Hormone replacement therapy; Z79.82 Long term (current) use of aspirin; Z88.5 Allergy status to narcotic agent; Z88.8 Allergy status to other drugs, medicaments and biological substances
CPT/HCPCS: 66984; 92015; J0697; J2250; J3010; V2788

== ENCOUNTER 2023-12-07 08:21 | Day surgery (SDC) | payer MEDICARE, BC, OTHER ==
[~2023-12-07] VITALS: Ht 177.8 cm; Wt 107.6 kg
[~2023-12-07 08:21] MED LIST changes: -CYCLOPENTOLATE 1% OPHTH SOLN 2ML BTL OD SCH; +CYCLOPENTOLATE 1% OPHTH SOLN 2ML BTL OS SCH; -OFLOXACIN 0.3 % (OCUFLOX) OPTH SOL 5ML OD ONE; +OFLOXACIN 0.3 % (OCUFLOX) OPTH SOL 5ML OS ONE; -PHENYLEPHRINE 10% OPHTH SOL 5ML OD PRN; +PHENYLEPHRINE 10% OPHTH SOL 5ML OS PRN; -PHENYLEPHRINE 2.5% OPHTH SOL 2ML OD SCH; +PHENYLEPHRINE 2.5% OPHTH SOL 2ML OS SCH; -TROPICAMIDE 1% OPHTH SOLN 15ML OD SCH; +TROPICAMIDE 1% OPHTH SOLN 15ML OS SCH
[2023-12-07] MEDS ORDERED: [UNRECOGNIZED DRUG - OTHER] (09:10)
[2023-12-07] MEDS ORDERED: POVIDONE-IODINE 5% OPHTH PREP SOL 30ML As Ordered ONE (09:44)
[2023-12-07 10:25] VITALS: BP 128/57; TEMP 97.3; O2SAT 98
== END 2023-12-07 10:48 | disposition home or self-care (01) ==
LOC: M SDC 08:21
PROVIDERS: ATTEND Ophthalmology
DX: H25.12 Age-related nuclear cataract, left eye (principal); E03.9 Hypothyroidism, unspecified; E78.00 Pure hypercholesterolemia, unspecified; M35.00 Sjogren syndrome, unspecified; M32.9 Systemic lupus erythematosus, unspecified; Z85.41 Personal history of malignant neoplasm of cervix uteri; Z79.82 Long term (current) use of aspirin; Z79.899 Other long term (current) drug therapy; Z79.890 Hormone replacement therapy; Z90.710 Acquired absence of both cervix and uterus; Z90.49 Acquired absence of other specified parts of digestive tract; Z88.5 Allergy status to narcotic agent; Z88.8 Allergy status to other drugs, medicaments and biological substances; Z92.21 Personal history of antineoplastic chemotherapy
CPT/HCPCS: 66984; 92015; J0697; J2250; J3010; V2788

== ENCOUNTER → 2023-12-15 | Outpatient (CLI) | payer MEDICARE, BC, OTHER ==
[~2023-12-15] MED LIST changes: -BSS IRRIG/VANCO(10MG)/TOBRA(5MG)/EPINEPH(1:1000-0.5CC)500ML BAG-ORONLY IR ONE; -CEFUROXIME 1MG/0.1ML INTRACAMERAL INJ As Ordered ONE; +CIPR0.3S37; -CYCLOPENTOLATE 1% OPHTH SOLN 2ML BTL OS SCH; -LIDOCAINE 1% SDV 5ML VIAL As Ordered ONE; -LIDOCAINE 3.5 % 1ML OPHTH TOPICAL GEL OU ONE; -MIDAZOLAM INJ 2MG/2ML VIAL As Ordered ONE; -OFLOXACIN 0.3 % (OCUFLOX) OPTH SOL 5ML OS ONE; -PHENYLEPHRINE 10% OPHTH SOL 5ML OS PRN; -PHENYLEPHRINE 2.5% OPHTH SOL 2ML OS SCH; +PREDOPD; -TROPICAMIDE 1% OPHTH SOLN 15ML OS SCH; +[UNRECOGNIZED DRUG - OTHER]; -fentaNYL 100 MCG/2 ML INJECTION As Ordered ONE
== END ==
LOC: M RAD 14:46
PROVIDERS: ATTEND Specialist
DX: D47.2 Monoclonal gammopathy (principal); M85.80 Other specified disorders of bone density and structure, unspecified site

== ENCOUNTER → 2024-01-22 | Outpatient (CLI) | payer MEDICARE, BC, OTHER | LOC: M RAD 13:33 | PROVIDERS: ATTEND Otolaryngology | DX: J32.8 Other chronic sinusitis (principal); J34.2 Deviated nasal septum ==

== ENCOUNTER → 2024-03-19 | Outpatient (CLI) | payer MEDICARE, BC, OTHER | LOC: M PAL 14:26 | PROVIDERS: ATTEND Nurse Practitioner Adult Health | DX: G50.0 Trigeminal neuralgia (principal); M79.7 Fibromyalgia; I73.00 Raynaud's syndrome without gangrene; I73.81 Erythromelalgia; G62.9 Polyneuropathy, unspecified; M54.81 Occipital neuralgia; M32.9 Systemic lupus erythematosus, unspecified; G89.29 Other chronic pain; Z51.5 Encounter for palliative care; Z63.79 Other stressful life events affecting family and household; Z79.3 Long term (current) use of hormonal contraceptives; Z79.82 Long term (current) use of aspirin; Z79.890 Hormone replacement therapy; Z79.899 Other long term (current) drug therapy; Z80.8 Family history of malignant neoplasm of other organs or systems; Z88.5 Allergy status to narcotic agent; Z88.8 Allergy status to other drugs, medicaments and biological substances; Z91.040 Latex allergy status; Z90.49 Acquired absence of other specified parts of digestive tract; Z90.710 Acquired absence of both cervix and uterus ==

== ENCOUNTER → 2024-05-21 | Outpatient (CLI) | payer MEDICARE, BC, OTHER ==
[~2024-05-21] MED LIST changes: +TRIA55AE2
== END ==
LOC: M RAD 14:52
PROVIDERS: ATTEND Neurological Surgery
DX: I67.1 Cerebral aneurysm, nonruptured (principal)

== ENCOUNTER → 2024-09-30 | Outpatient (CLI) | payer MEDICARE, BC, OTHER ==
[2024-09-30 15:31] LABS: HEMATOCRIT 41.9 % (36.0-47.0); MEAN CORPUSCULAR HEMOGLOBIN 32.1 pg (27.0-33.0); MEAN CORPUSCULAR HGB CONC 33.4 g/dl (32.0-36.5); MEAN CORPUSCULAR VOLUME 96.1 fl (80.0-96.0); PLATELET COUNT, AUTOMATED 248 10^3/uL (150-450); RED BLOOD COUNT 4.36 10^6/uL (4.00-5.40); WHITE BLOOD COUNT 3.9 10^3/uL (4.0-10.0)
[2024-09-30 15:52] LABS: C REACTIVE PROTEIN QUANTITATIV < 0.40 MG/DL (<1.0)
[2024-09-30 15:53] LABS: ALBUMIN 3.5 G/DL (3.2-5.2); ALKALINE PHOSPHATASE 61 U/L (35-104); ALT/SGPT 15 U/L (7.0-40); AST/SGOT 12 U/L (<34); BILIRUBIN,TOTAL 0.3 MG/DL (0.3-1.2); BLOOD UREA NITROGEN 14 MG/DL (9-23); CALCIUM LEVEL 9.3 MG/DL (8.3-10.6); CARBON DIOXIDE LEVEL 32 MMOL/L (20-31); CHLORIDE LEVEL 102 MMOL/L (98-107); CREATININE FOR GFR 0.82 MG/DL (0.55-1.30); GLOMERULAR FILTRATION RATE > 60.0 (>45); GLUCOSE, FASTING 96 MG/DL (74-106); POTASSIUM SERUM 4.1 MMOL/L (3.5-5.1); SODIUM LEVEL 140 MMOL/L (136-145); TOTAL PROTEIN 7.4 G/DL (5.7-8.2)
[2024-09-30 15:54] LABS: COMPLEMENT C3 148.7 MG/DL (90.0-170.0); COMPLEMENT C4 12.5 MG/DL (12-36)
[2024-09-30 15:59] LABS: FREE T4 1.82 NG/DL (0.89-1.76); THYROID STIMULATING HORMONE 0.537 uIU/ML (0.55-4.78)
== END ==
LOC: M LAB 14:44
PROVIDERS: ATTEND Physician Assistant Medical
DX: M35.00 Sjogren syndrome, unspecified (principal)

== ENCOUNTER → 2025-06-03 | Outpatient (CLI) | payer MEDICARE, BC, OTHER ==
[~2025-06-03] MED LIST changes: +KETO120S5 TOP; -KETO2SHA8 TOP
[2025-06-03 16:54] LABS: CHOLESTEROL LEVEL 252.0 MG/DL (<200); CHOLESTEROL RISK RATIO 5.04 (<5); LDL CHOLESTEROL 178.6 MG/DL (<100); NON-HDL-C 202.0 MG/DL; TRIGLYCERIDES LEVEL 117.0 MG/DL (<150)
== END ==
LOC: M LAB 15:45
PROVIDERS: ATTEND Nurse Practitioner Family
DX: E78.2 Mixed hyperlipidemia (principal)